=== PATIENT | male | born 1990 | race Caucasian/White ===

== ENCOUNTER 2016-11-04 06:58 | Emergency (ER) | payer BC, OTHER ==
[2016-11-04] MEDS ORDERED: ACETAMINOPHEN/ASA/CAFFEINE 1 EACH TAB PO PRN (07:27)
[2016-11-04] MEDS ORDERED: ONDANSETRON 4 MG/2 ML VIAL IVP ONE (07:40)
[2016-11-04] MEDS ORDERED: KETOROLAC 30 MG/1 ML SDV IVP ONE (07:40)
[2016-11-04] MEDS ORDERED: DEXAMETHASONE 10 MG/ML VIAL IVP ONE (07:40)
[2016-11-04] MEDS ORDERED: NS 1,000 ML IV ONE (07:40)
--- NOTE | 2016-11-04 07:40 | EDPHY ---
HPI/HX/ROS/PE/MDM Narrative: CHIEF COMPLAINT: Headache HISTORY OF PRESENT ILLNESS: The patient is a 26 y/o male, with a history of migraines, complaining of waxing and waning headache since , 5 days ago. He has been followed by a neurologist for his migraines, but reports headache frequency decreased as he got older and he has not taken prescribed migraine medication in a long time. On , over a 10-15 minute period he developed a severe occipital headache and pressure; he was unable to drive himself after symptom onset due to severity. His headache has waxed and waned since onset and intermittently radiates bilaterally towards his forehead. He has associated nausea, vomiting, and photophobia. He has been unable to keep much food down and was last able to take an Excedrin dose 2 days ago due to vomiting. He states he usually gets migraines once per month and his symptoms today are exactly the same as previous migraines except his symptoms usually resolve after one day. He denies any recent trauma or illness. No fever, chills, chest pain, shortness of breath, palpitations, diarrhea, urinary complaints, sinus pain, balance problems, weakness, paresthesias, diplopia, lightheadedness. REVIEW OF SYSTEMS: Aside from elements discussed in the HPI, a comprehensive 10-point review of systems was reviewed and is negative. PAST MEDICAL HISTORY: Migraines,asthma - no meds, intermittent obstructed Eustachian tubes SOCIAL HISTORY: Nonsmoker. No recent alcohol use. Smokes marijuana. Works for [employer] VITAL SIGNS: Reviewed by me GENERAL: Well-developed, well-nourished, resting in a dark room. Alert, conversant. HEENT: Atraumatic. Eyes: No icterus, no injection, EOMI. PERRL. Mouth: dry mucous membranes. No erythema or lesions. Neck: No adenopathy or tenderness. Negative Kernig's, negative Brudzinski's, supple, no meningismus. No focal tenderness. LUNGS: Clear to auscultation bilaterally, no wheezes, rhonchi or rales. CARDIAC: Regular rate and rhythm, no rubs, murmurs or gallops. ABDOMEN: Soft, nontender, nondistended, bowel sounds normal. BACK: No CVA tenderness. EXTREMITIES: No trauma. No edema. Range of motion is normal throughout. NEURO: Alert and oriented x3, cranial nerves are intact throughout, normal motor , normal sensation. SKIN: Warm and dry, no rash. PSYCHIATRIC: Normal mentation, no agitation. Portions of this note were transcribed by a medical records technician. I personally performed a history, physical exam, medical decision making, and confirmed accuracy of information the transcribed note. ED Course: This is a 26 y/o male with a history of migraines who is otherwise healthy that presents with a 5-day history of persistent waxing and waning migraine symptoms. He reports his symptoms usually resolve after 1 day and he doesn't require medical care. He has associated dehydration due to vomiting and nausea evidenced by his dry mucous membranes. His neurologic exam is completely normal. He does not meet criteria for imaging. Plan for IV fluids and symptom management. IV established. 1L IV NS, 15mg IV Ketorolac, 10mg IV Decadron, 4mg IV Zofran, and 1 tablet PO Excedrin administered. 0835: Patient is feeling improved after medication and ready for discharge home. Neuro exam remains normal. He will be discharged with standard migraine care instructions and referral to Dr. Sylvester, neurologist, for follow up this week. Strict return precautions given. He is comfortable with this plan. MDM: After history was obtained, and the physical exam performed, a differential for headache was considered including, but not limited to, subarachnoid hemorrhage, migraine headache, tension headache and infectious causes such as meningitis, sinusitis, encephalitis. - Data Points Medications Given: Discontinued Medications Acetaminophen/Aspirin/Caffeine (Excedrin Tablet) 1 each PO Q6HRS PRN PRN Reason: Headache Stop: 05/03/17 07:26 Last Admin: 11/04/16 07:56 Dose: 1 each Dexamethasone (Decadron Injection) 10 mg IVP EDNOW ONE Stop: 11/04/16 07:41 Last Admin: 11/04/16 08:08 Dose: 10 mg Sodium Chloride (Ns) 1,000 mls @ 0 mls/hr IV ONCE ONE PRN Reason: Wide Open Stop: 11/04/16 07:41 Last Admin: 11/04/16 07:56 Dose: 1,000 mls Ketorolac Tromethamine (Toradol) 15 mg IVP EDNOW ONE Stop: 11/04/16 07:41 Last Admin: 11/04/16 08:07 Dose: 15 mg Ondansetron HCl (Zofran) 4 mg IVP EDNOW ONE Stop: 11/04/16 07:41 Last Admin: 11/04/16 08:00 Dose: 4 mg General Time Seen by Provider: 11/04/16 07:27 Initial Vital Signs: Initial Vital Signs Temperature (C) 36.6 C 11/04/16 07:02 Heart Rate 87 11/04/16 07:02 Respiratory Rate 12 11/04/16 07:02 Blood Pressure 130/75 H 11/04/16 07:02 O2 Sat (%) 94 11/04/16 07:02 O2 Delivery Mode Room Air Allergies/Adverse Reactions: No Known Allergies Allergy (Unverified 12/04/15 16:57) Home Medications: Medication Instructions Recorded NK [No Known Home Meds] 11/04/16 Departure - Departure Disposition: Home, Routine, Self-Care Clinical Impression: Dehydration Migraine Qualifiers: Migraine type: unspecified Status migrainosus presence: with status migrainosus Intractability: not intractable Qualified Code(s): G43.901 - Migraine, unspecified, not intractable, with status migrainosus Vomiting Qualifiers: Vomiting type: unspecified Vomiting Intractability: non-intractable Nausea presence: with nausea Qualified Code(s): R11.2 - Nausea with vomiting, unspecified Condition: Good Instructions: Migraine Headache (ED) Additional Instructions: 1. Increase fluid intake as tolerated. 2. Take Excedrin as directed on the packaging for the next 2-3 days for migraine relief. 3. Follow up with Dr. Sylvester, neurologist, this week. 4. Return to the ED for worsening headache, weakness or numbness on one side of your body, vision changes, difficulty with speech, or other worsening of condition. Referrals: Michel Sylvester MD [Medical Doctor] - As per Instructions Report Scribed for: Baylee Hinds Report Scribed by: Martha Flores Date of Report: 11/04/16 Time of Report: 07:47
[2016-11-04 08:36] VITALS: BP 129/77; PULSE 72; RESP 16; TEMP 97.7; O2SAT 98
== END 2016-11-04 08:50 | disposition home or self-care (01) ==
DX: G43.901 Migraine, unspecified, not intractable, with status migrainosus (principal); E86.0 Dehydration
CPT/HCPCS: 96374; J1885; J2405

== ENCOUNTER 2016-11-10 01:06 | Emergency (ER) | payer BC ==
[2016-11-10] MEDS ORDERED: METOCLOPRAMIDE 10 MG/2 ML VIAL IVP ONE (01:24)
[2016-11-10] MEDS ORDERED: NS 1,000 ML IV ONE (01:24)
[2016-11-10] MEDS ORDERED: DEXAMETHASONE 4 MG/ML VIAL IVP ONE (01:24)
[2016-11-10] MEDS ORDERED: KETOROLAC 15 MG/1 ML SDV IVP/IM ONE (01:24)
--- NOTE | 2016-11-10 01:33 | EDPHY ---
H & P Stated Complaint: migraine Time Seen by Provider: 11/10/16 01:23 HPI/ROS: HPI The patient presents with headache which began about 1 hour ago and started slowly and is getting progressively worse. It is in his occipital region, throbbing in nature, radiating forwards and is retro-orbital. Is associated with photophobia. It feels typical of his usual migraine. He was last in the emergency room a few days ago with similar complaint. He said his headache improved significantly, however was lingering over the last few days. He does not have any numbness or weakness of his arms or legs. He has not taken any medication at home for the headache.. REVIEW OF SYSTEMS Constitutional: No fever, no chills. Eyes: No discharge. ENT: No sore throat. Cardiovascular: No chest pain, no palpitations. Respiratory: No cough, no shortness of breath. Gastrointestinal: No abdominal pain, no vomiting. Genitourinary: No hematuria. Musculoskeletal: No back pain. Skin: No rashes. Neurological: Positive for headache. PMHx: Migraine PHYSICAL General Appearance: Alert, uncomfortable appearing, lying on a gurney in a dark room Eyes: Pupils equal and round no pallor or injection ENT, Mouth: Mucous membranes moist Respiratory: There are no retractions, lungs are clear to auscultation Cardiovascular: Regular rate and rhythm Gastrointestinal: Abdomen is soft and non-tender, no masses, bowel sounds normal Neurological: A&O, cranial nerves 2-12 intact, 5/5 strength in upper and lower extremities which is symmetric moves all extremities Skin: Warm and dry, no rashes Musculoskeletal: Neck is supple non tender Extremities: symmetrical, full range of motion Psychiatric: Patient is oriented X 3, there is no agitation Source: Patient Exam Limitations: No limitations - Personal History Current Tetanus/Diphtheria Vaccine: Yes Tetanus Vaccine Date: 2015 - Medical/Surgical History Hx Asthma: Yes Hx Chronic Respiratory Disease: No Hx Diabetes: No Hx Cardiac Disease: No Hx Renal Disease: No Hx Cirrhosis: No Hx Alcoholism: No Hx HIV/AIDS: No Hx Splenectomy or Spleen Trauma: No Other PMH: PMHx: Asthma, migraines. PSHx: appy, R leg biopsy - Social History Smoking Status: Never smoked Constitutional: Initial Vital Signs Temperature (C) 36.4 C 11/10/16 01:07 Heart Rate 71 11/10/16 01:07 Respiratory Rate 20 11/10/16 01:07 Blood Pressure 134/83 H 11/10/16 01:07 O2 Sat (%) 97 11/10/16 01:07 O2 Delivery Mode Room Air O2 (L/minute) 2 Allergies/Adverse Reactions: No Known Allergies Allergy (Unverified 12/04/15 16:57) Home Medications: Medication Instructions Recorded SUMAtriptan [Imitrex 25 MG (*)] 25 mg PO Q2H #10 tab 11/10/16 Medical Decision Making Differential Diagnosis: This is a 26-year-old male who presents from home with 1 hour of severe occipital headache, similar to prior migraine headaches. On exam, he is quite uncomfortable appearing with a normal neurologic evaluation. I will plan to treat him here with the same medications he received a few days ago. In the emergency room, he received initial round of medications with near complete improvement of his symptoms. He did not feel well enough to go home yet. He received an additional L of IV fluid as well as small dose of Haldol given his nausea and this improved his symptoms significantly. He will be discharged home. I will write for a short course of Imitrex as this may benefit him in the future. We also discussed Excedrin migraine. I have given him the information again for Dr. Sylvester who he was referred to on his last visit about 1 week ago. - Data Points Medications Given: Discontinued Medications Dexamethasone (Decadron Injection) 8 mg IVP EDNOW ONE Stop: 11/10/16 01:25 Last Admin: 11/10/16 01:31 Dose: 8 mg Diphenhydramine HCl (Benadryl Injection) 25 mg IVP EDNOW ONE Stop: 11/10/16 02:39 Last Admin: 11/10/16 02:38 Dose: 25 mg Haloperidol Lactate (Haldol Injection) 2.5 mg IVP EDNOW ONE Stop: 11/10/16 02:34 Last Admin: 11/10/16 02:38 Dose: 2.5 mg Sodium Chloride (Ns) 1,000 mls @ 3,000 mls/hr IV EDNOW ONE Stop: 11/10/16 01:43 Last Admin: 11/10/16 01:32 Dose: 1,000 mls Ketorolac Tromethamine (Toradol) 15 mg IVP/IM EDNOW ONE Stop: 11/10/16 01:25 Last Admin: 11/10/16 01:31 Dose: 15 mg Metoclopramide HCl (Reglan Injection) 10 mg IVP EDNOW ONE Stop: 11/10/16 01:25 Last Admin: 11/10/16 01:32 Dose: 10 mg Departure - Departure Disposition: Home, Routine, Self-Care Clinical Impression: Migraine headache Condition: Good Instructions: Migraine Headache (ED) Additional Instructions: You can take Excedrin migraine as needed for your pain. Referrals: Michel Sylvester MD [Medical Doctor] - As per Instructions Prescriptions: SUMAtriptan [Imitrex 25 MG (*)] 25 mg PO Q2H #10 tab
[2016-11-10] MEDS ORDERED: HALOPERIDOL LACT 5 MG/ML INJ IVP ONE (02:33)
[2016-11-10 03:30] VITALS: RESP 16
[2016-11-10 04:00] VITALS: BP 129/82; PULSE 66; TEMP 97.9; O2SAT 96
== END 2016-11-10 03:59 | disposition home or self-care (01) ==
DX: G43.909 Migraine, unspecified, not intractable, without status migrainosus (principal); J45.909 Unspecified asthma, uncomplicated
CPT/HCPCS: 96374; J1100; J1200; J1885; J2765

== ENCOUNTER 2018-08-28 01:12 | Emergency (ER) | payer BC, OTHER ==
--- NOTE | 2018-08-28 01:22 | EDPHY ---
H & P Stated Complaint: middle abd pain starting this am Source: Patient - Personal History Current Tetanus Diphtheria and Acellular Pertussis (TDAP): Yes Tetanus Vaccine Date: 2015 - Medical/Surgical History Hx Asthma: Yes Hx Chronic Respiratory Disease: No Hx Diabetes: No Hx Cardiac Disease: No Hx Renal Disease: No Hx Cirrhosis: No Hx Alcoholism: No Hx HIV/AIDS: No Hx Splenectomy or Spleen Trauma: No Other PMH: PMHx: Asthma, migraines. PSHx: appy, R leg biopsy - Social History Smoking Status: Never smoked Time Seen by Provider: 08/28/18 01:22 HPI/ROS: HPI CHIEF COMPLAINT: Abdominal pain, vomiting. HISTORY OF PRESENT ILLNESS: 28-year-old male, history of migraine headaches, presents emergency room with abdominal pain and vomiting. Patient has remote history of appendectomy, he presents emergency room mid abdominal pain periumbilical nonradiating. Describes a burning rather severe. Associated with 1 episode of nausea vomiting prior to arrival he reports he was sick earlier in the week with what he believes to be norovirus with vomiting and diarrhea but this got better with time. He states around midnight or approximately hour and half ago developed mid abdominal pain burning rather severe. This prompted him to come the emergency room. His gotten somewhat better since arriving but still has it. 1 episode of vomiting nonbilious nonbloody. He denies any chest pain or shortness of breath. Past Medical History: Denies significant medical history Past Surgical History: Denies significant surgical history except appendectomy Social History: Denies drugs alcohol tobacco. Family History: Noncontributory ROS REVIEW OF SYSTEMS: 10 Systems were reviewed and negative with the exception of the elements mentioned in the history of present illness. Exam Constitutional triage nursing summary reviewed, vital signs reviewed, awake/ alert. Eyes normal conjunctivae and sclera, EOMI, PERRLA. HENT normal inspection, atraumatic, moist mucus membranes, no epistaxis, neck supple/ no meningismus, no raccoon eyes. Respiratory clear to auscultation bilaterally, normal breath sounds, no respiratory distress, no wheezing. Cardiovascular rate normal, regular rhythm, no murmur, no edema, distal pulses normal. Gastrointestinal tender palpation mid abdomen, no rebound, no guarding, normal bowel sounds, no distension, no pulsatile mass. Genitourinary no CVA tenderness. Musculoskeletal no midline vertebral tenderness, full range of motion, no calf swelling, no tenderness of extremities, no meningismus, good pulses, neurovascularly intact. Skin pink, warm, & dry, no rash, skin atraumatic. Neurologic awake, alert and oriented x 3, AAOx3, moves all 4 extremities equally, motor intact, sensory intact, CN II-XII intact, normal cerebellar, normal vision, normal speech. Psychiatric normal mood/affect. Heme/Lymph/Immune no lymphadenopathy. Differential Diagnosis: Differential diagnosis includes but is not limited to and in no particular order: Bowel obstruction, gallbladder disease, diverticulitis, colitis, enteritis, perforated viscus, gastritis, GERD, esophagitis, urinary tract infection, pyelonephritis, kidney stones Medical Decision Making: Plan for this patient IV establishment IV fluid bolus , for a basic labs, CT scan abdomen pelvis with IV contrast re-evaluate. Re-evaluation: Reason for CT scan mid abdominal pain vomiting. CT scan abdomen pelvis with IV contrast shows mild periportal edema in the liver may be secondary to increased fluid status or hepatic inflammation hepatitis correlate with LFTs there is no free fluid free air bowel obstruction or bowel inflammation visualized on CT scan. This was faxed to me by [facility] at 3:00 a.m.. Ultrasound faxed me by [facility] at time 5:12 a.m. This shows a mildly thickened hyperemic gallbladder wall with an otherwise unremarkable study no gallstones. No sonographic Baer sign. No pericholecystic fluid. 0608: I discussed this case in detail with Dr. Weller, the patient does not have any further abdominal pain specifically no right upper quadrant abdominal pain, no nausea or vomiting at this time. He in fact feels much better. He has been here in the emergency room for 5 hr. His abdomen is soft nontender. I discussed the lab results and workup with Dr. Weller. They will plan on follow-up care for him. I also discussed with the patient should return emergency room if develops worsening abdominal pain, fever, vomiting. This time the patient has no right upper quadrant abdominal pain he is not vomiting. No fever. I do believe based on his labs, CT scan and ultrasound cholecystitis is unlikely given he has no pain there. However it is somewhat concerning he does have an elevated bilirubin of unclear etiology. I do recommend he follows up with Gastroenterology. Also I discussed with patient if he has worsening abdominal pain fever vomiting he needs return emergency room. He understands and is comfortable this plan. ( Stephane Conte) Constitutional: Initial Vital Signs Temperature (C) 36.6 C 08/28/18 01:16 Heart Rate 66 08/28/18 01:16 Respiratory Rate 16 08/28/18 01:16 Blood Pressure 122/78 H 08/28/18 01:16 O2 Sat (%) 97 08/28/18 01:16 O2 Delivery Mode Room Air Allergies/Adverse Reactions: No Known Allergies Allergy (Unverified 12/04/15 16:57) Home Medications: Medication Instructions Recorded NK [No Known Home Meds] 08/28/18 Medical Decision Making Other Provider: CT scan abdomen pelvis called by Dr. Pinzon at 7:55 a.m. Is possible fuzziness or haziness around the appendix. Chart reviewed at this time, patient has history of appendectomy. No further action likely indicated. (Cali Louis) - Data Points Laboratory Results: Laboratory Results 08/28/18 01:30 08/28/18 01:30 Medications Given: Discontinued Medications Sodium Chloride (Ns) 1,000 mls @ 0 mls/hr IV EDNOW ONE; Wide Open PRN Reason: Protocol Stop: 08/28/18 01:29 Last Admin: 08/28/18 01:31 Dose: 1,000 mls Sodium Chloride (Ns) 1,000 mls @ 0 mls/hr IV ONCE ONE PRN Reason: Wide Open Stop: 08/28/18 02:19 Last Admin: 08/28/18 02:27 Dose: 1,000 mls Departure - Departure Disposition: Home, Routine, Self-Care Clinical Impression: Abdominal pain Qualifiers: Abdominal location: unspecified location Qualified Code(s): R10.9 - Unspecified abdominal pain Condition: Good Instructions: Acute Abdominal Pain (ED) Additional Instructions: 1. Spencer diet for the next 12 to 24 hours. No spicy fatty greasy foods. 2. Return to the emergency room if he develops worsening abdominal pain, fever, vomiting 3. It was noticed that you're bilirubin is elevated in the emergency room. You need to have this followed up by Gastroenterology. Please call make a follow- up appointment. 4. Return to the emergency room if you have worsening symptoms. Referrals: NONE *PRIMARY CARE P,. [Primary Care Provider] - As per Instructions Saul Weller MD [Medical Doctor] - As per Instructions
[2018-08-28] MEDS ORDERED: NS 1,000 ML IV ONE ×2 (01:28→02:18)
[2018-08-28 01:47] LABS: PLATELET COUNT 172 10^3/uL (150-400)
[2018-08-28] MEDS ORDERED: IOPAMIDOL (ISOVUE-300) 100 ML BTL ONE ×2 (02:02→02:03)
[2018-08-28 06:26] VITALS: BP 118/76
== END 2018-08-28 06:25 | disposition home or self-care (01) ==
DX: R10.9 Unspecified abdominal pain (principal); R11.10 Vomiting, unspecified; E86.9 Volume depletion, unspecified
CPT/HCPCS: Q9967